=== PATIENT | male | born 2005 | race Caucasian/White ===

== ENCOUNTER 2023-08-06 14:28 | Emergency (ER) | payer BC ==
[~2023-08-06] VITALS: Ht 182.9 cm; Wt 61.1 kg
[2023-08-06 15:55] VITALS: BP 110/86; PULSE 60; RESP 18; TEMP 98.2; O2SAT 99
--- NOTE | 2023-08-06 23:21 | NUR ---
patient d/c on day shift. unable to appropriately review assesments.
== END 2023-08-06 15:57 | disposition home or self-care (01) ==
LOC: ER 14:28
DX: M79.675 Pain in left toe(s) (principal); R22.42 Localized swelling, mass and lump, left lower limb
CPT/HCPCS: 73660; 99283; L3260